=== PATIENT | female | born 1990 | race American Indian/Alaskan Native ===

== ENCOUNTER 2018-10-12 10:05 | Inpatient (IN) | payer OTHER ==
--- NOTE | 2018-10-12 10:47 | Emergency Department Report ---
ED General Adult HPI - General Chief complaint: Altered Mental Status Stated complaint: SUICIDAL ATTEMPT Time Seen by Provider: 10/12/18 10:18 Source: EMS Mode of arrival: Stretcher Limitations: Altered Mental Status - History of Present Illness Initial comments: The patient was found on the floor of her home by her with empty Tylenol or Motrin bottles. The patient states that she was trying to kill her self. The patient is sluggish but arousable and answers questions. Not very forthcoming with the history. -: Sudden Severity scale (0 -10): 0 Improves with: none Worsens with: none Treatments Prior to Arrival: none - Related Data Previous Rx's Medication Instructions Recorded Last Taken Type Sulfamethoxazole/Trimethoprim 1 each PO BID #20 tablet 04/10/15 Unknown Rx [Bactrim DS TAB] traMADol [Ultram 50 MG tab] 50 mg PO Q6HR PRN #12 tablet 04/10/15 Unknown Rx Ibuprofen [Motrin] 800 mg PO Q8HR PRN #20 tablet 04/07/18 Unknown Rx oxyCODONE /ACETAMINOPHEN [Percocet 1 tab PO Q4HR #14 tab 04/07/18 Unknown Rx 5/325] Ferrous Sulfate [Feosol 325 MG tab] 325 mg PO QDAY #30 tablet 04/11/18 Unknown Rx Allergies Allergy/AdvReac Type Severity Reaction Status Date / Time No Known Allergies Allergy Verified 04/10/15 08:12 ED Review of Systems ROS: Stated complaint: SUICIDAL ATTEMPT Other details as noted in HPI Constitutional: denies: chills, fever Eyes: denies: eye pain, eye discharge, vision change ENT: denies: ear pain, throat pain Respiratory: denies: cough, shortness of breath, wheezing Cardiovascular: denies: chest pain, palpitations Endocrine: no symptoms reported Gastrointestinal: denies: abdominal pain, nausea, diarrhea Genitourinary: denies: urgency, dysuria, discharge Musculoskeletal: denies: back pain, joint swelling, arthralgia Skin: denies: rash, lesions Neurological: denies: headache, weakness, paresthesias Psychiatric: suicidal thoughts. denies: anxiety, depression Hematological/Lymphatic: denies: easy bleeding, easy bruising ED Past Medical Hx - Past Medical History Hx Hypertension: Yes (PIH) Hx Congestive Heart Failure: No Hx Diabetes: No Hx Deep Vein Thrombosis: No Hx Renal Disease: No Hx Sickle Cell Disease: No Hx Seizures: No Hx Asthma: No Hx COPD: No - Surgical History Additional Surgical History: tonsills removed - Social History Smoking Status: Unknown if ever smoked - Medications Home Medications: Home Medications Medication Instructions Recorded Confirmed Last Taken Type Sulfamethoxazole/Trimethoprim 1 each PO BID #20 tablet 04/10/15 04/07/18 Unknown Rx [Bactrim DS TAB] traMADol [Ultram 50 MG tab] 50 mg PO Q6HR PRN #12 tablet 04/10/15 04/07/18 Unknown Rx Ibuprofen [Motrin] 800 mg PO Q8HR PRN #20 tablet 04/07/18 Unknown Rx oxyCODONE /ACETAMINOPHEN [Percocet 1 tab PO Q4HR #14 tab 04/07/18 Unknown Rx 5/325] Ferrous Sulfate [Feosol 325 MG tab] 325 mg PO QDAY #30 tablet 04/11/18 Unknown Rx ED Physical Exam - General Limitations: Altered Mental Status General appearance: obtunded - Head Head exam: Present: atraumatic, normocephalic - Eye Eye exam: Present: normal appearance, PERRL, EOMI - ENT ENT exam: Present: normal exam, mucous membranes dry - Neck Neck exam: Present: normal inspection - Respiratory Respiratory exam: Present: normal lung sounds bilaterally. Absent: respiratory distress, wheezes, rales, rhonchi ED Course Vital Signs 10/12/18 10/12/18 10/12/18 10:10 10:15 10:31 Temperature 97.4 F L Pulse Rate 90 86 87 Respiratory 18 24 24 Rate Blood Pressure 98/53 102/56 121/67 O2 Sat by Pulse 99 100 Oximetry 10/12/18 10/12/18 10/12/18 10:45 11:00 11:15 Temperature Pulse Rate 84 83 81 Respiratory 20 19 15 Rate Blood Pressure 124/77 118/76 114/75 O2 Sat by Pulse 100 100 100 Oximetry 10/12/18 10/12/18 10/12/18 11:30 11:45 12:00 Temperature Pulse Rate 81 82 86 Respiratory 23 19 23 Rate Blood Pressure 125/79 128/81 129/81 O2 Sat by Pulse 100 100 100 Oximetry 10/12/18 10/12/18 10/12/18 12:15 12:49 13:00 Temperature Pulse Rate 87 81 Respiratory 25 H 20 Rate Blood Pressure 135/89 135/89 119/69 O2 Sat by Pulse 100 95 100 Oximetry 10/12/18 10/12/18 10/12/18 13:15 13:30 13:45 Temperature Pulse Rate 94 H 81 88 Respiratory 20 22 26 H Rate Blood Pressure 130/82 117/73 129/81 O2 Sat by Pulse 100 Oximetry 10/12/18 10/12/18 10/12/18 14:00 14:15 14:30 Temperature Pulse Rate 86 85 85 Respiratory 23 22 22 Rate Blood Pressure 121/82 125/83 125/80 O2 Sat by Pulse Oximetry 10/12/18 10/12/18 10/12/18 14:45 15:00 15:15 Temperature Pulse Rate 85 85 85 Respiratory 23 22 21 Rate Blood Pressure 122/76 126/84 126/86 O2 Sat by Pulse Oximetry 10/12/18 10/12/18 15:30 15:45 Temperature Pulse Rate 84 84 Respiratory 20 21 Rate Blood Pressure 126/80 124/83 O2 Sat by Pulse Oximetry ED Medical Decision Making - Lab Data Result diagrams: 10/12/18 10:38 10/12/18 10:38 Lab Results 10/12/18 10/12/18 10/12/18 Range/Units 10:19 10:38 10:38 WBC (4.5-11.0) K/mm3 RBC (3.65-5.03) M/mm3 Hgb (10.1-14.3) gm/dl Hct (30.3-42.9) % MCV (79-97) fl MCH (28-32) pg MCHC (30-34) % RDW (13.2-15.2) % Plt Count (140-440) K/mm3 Lymph % (Auto) (13.4-35.0) % Mcdonald % (Auto) (0.0-7.3) % Eos % (Auto) (0.0-4.3) % Baso % (Auto) (0.0-1.8) % Lymph # (1.2-5.4) K/mm3 Mcdonald # (0.0-0.8) K/mm3 Eos # (0.0-0.4) K/mm3 Baso # (0.0-0.1) K/mm3 Seg Neutrophils % (40.0-70.0) % Seg Neutrophils # (1.8-7.7) K/mm3 PT (12.2-14.9) Sec. INR (0.87-1.13) APTT (24.2-36.6) Sec. Sodium (137-145) mmol/L Potassium (3.6-5.0) mmol/L Chloride (98-107) mmol/L Carbon Dioxide (22-30) mmol/L Anion Gap mmol/L BUN (7-17) mg/dL Creatinine (0.7-1.2) mg/dL Estimated GFR ml/min BUN/Creatinine Ratio % Glucose (65-100) mg/dL POC Glucose 156 H (70-105) Calcium (8.4-10.2) mg/dL Total Bilirubin (0.1-1.2) mg/dL Direct Bilirubin (0-0.2) mg/dL Indirect Bilirubin mg/dL AST (5-40) units/L ALT (7-56) units/L Alkaline Phosphatase (35-129) units/L Total Protein (6.3-8.2) g/dL Albumin (3.9-5) g/dL Albumin/Globulin Ratio % HCG, Qual (Negative) Urine Color (Yellow) Urine Turbidity (Clear) Urine pH (5.0-7.0) Ur Specific [place] (1.003-1.030) Urine Protein (Negative) mg/dL Urine Glucose (UA) (Negative) mg/dL Urine Ketones (Negative) mg/dL Urine Blood (Negative) Urine Nitrite (Negative) Urine Bilirubin (Negative) Urine Urobilinogen (<2.0) mg/dL Ur Leukocyte Esterase (Negative) Urine WBC (Auto) (0.0-6.0) /HPF Urine RBC (Auto) (0.0-6.0) /HPF Salicylates < 0.3 L (2.8-20.0) mg/dL Urine Opiates Screen Urine Methadone Screen Acetaminophen 292.8 H* (10.0-30.0) ug/mL Ur Barbiturates Screen Ur Phencyclidine Scrn Ur Amphetamines Screen U Benzodiazepines Scrn Urine Cocaine Screen U Marijuana (THC) Screen Drugs of Abuse Note Plasma/Serum Alcohol (0-0.07) % 10/12/18 10/12/18 10/12/18 Range/Units 10:38 10:38 10:38 WBC (4.5-11.0) K/mm3 RBC (3.65-5.03) M/mm3 Hgb (10.1-14.3) gm/dl Hct (30.3-42.9) % MCV (79-97) fl MCH (28-32) pg MCHC (30-34) % RDW (13.2-15.2) % Plt Count (140-440) K/mm3 Lymph % (Auto) (13.4-35.0) % Mcdonald % (Auto) (0.0-7.3) % Eos % (Auto) (0.0-4.3) % Baso % (Auto) (0.0-1.8) % Lymph # (1.2-5.4) K/mm3 Mcdonald # (0.0-0.8) K/mm3 Eos # (0.0-0.4) K/mm3 Baso # (0.0-0.1) K/mm3 Seg Neutrophils % (40.0-70.0) % Seg Neutrophils # (1.8-7.7) K/mm3 PT (12.2-14.9) Sec. INR (0.87-1.13) APTT (24.2-36.6) Sec. Sodium 138 (137-145) mmol/L Potassium 4.5 (3.6-5.0) mmol/L Chloride 103.4 (98-107) mmol/L Carbon Dioxide 20 L (22-30) mmol/L Anion Gap 19 mmol/L BUN 9 (7-17) mg/dL Creatinine 0.7 (0.7-1.2) mg/dL Estimated GFR > 60 ml/min BUN/Creatinine Ratio 13 % Glucose 136 H (65-100) mg/dL POC Glucose (70-105) Calcium 9.1 (8.4-10.2) mg/dL Total Bilirubin (0.1-1.2) mg/dL Direct Bilirubin (0-0.2) mg/dL Indirect Bilirubin mg/dL AST (5-40) units/L ALT (7-56) units/L Alkaline Phosphatase (35-129) units/L Total Protein (6.3-8.2) g/dL Albumin (3.9-5) g/dL Albumin/Globulin Ratio % HCG, Qual Negative (Negative) Urine Color (Yellow) Urine Turbidity (Clear) Urine pH (5.0-7.0) Ur Specific [place] (1.003-1.030) Urine Protein (Negative) mg/dL Urine Glucose (UA) (Negative) mg/dL Urine Ketones (Negative) mg/dL Urine Blood (Negative) Urine Nitrite (Negative) Urine Bilirubin (Negative) Urine Urobilinogen (<2.0) mg/dL Ur Leukocyte Esterase (Negative) Urine WBC (Auto) (0.0-6.0) /HPF Urine RBC (Auto) (0.0-6.0) /HPF Salicylates (2.8-20.0) mg/dL Urine Opiates Screen Urine Methadone Screen Acetaminophen (10.0-30.0) ug/mL Ur Barbiturates Screen Ur Phencyclidine Scrn Ur Amphetamines Screen U Benzodiazepines Scrn Urine Cocaine Screen U Marijuana (THC) Screen Drugs of Abuse Note Plasma/Serum Alcohol < 0.01 (0-0.07) % 10/12/18 10/12/18 10/12/18 Range/Units 10:38 10:38 10:38 WBC 4.4 L (4.5-11.0) K/mm3 RBC 3.72 (3.65-5.03) M/mm3 Hgb 10.2 (10.1-14.3) gm/dl Hct 30.4 (30.3-42.9) % MCV 82 (79-97) fl MCH 28 (28-32) pg MCHC 34 (30-34) % RDW 18.9 H (13.2-15.2) % Plt Count 813 H (140-440) K/mm3 Lymph % (Auto) 30.5 (13.4-35.0) % Mcdonald % (Auto) 8.2 H (0.0-7.3) % Eos % (Auto) 1.6 (0.0-4.3) % Baso % (Auto) 1.1 (0.0-1.8) % Lymph # 1.3 (1.2-5.4) K/mm3 Mcdonald # 0.4 (0.0-0.8) K/mm3 Eos # 0.1 (0.0-0.4) K/mm3 Baso # 0.0 (0.0-0.1) K/mm3 Seg Neutrophils % 58.6 (40.0-70.0) % Seg Neutrophils # 2.6 (1.8-7.7) K/mm3 PT 13.2 (12.2-14.9) Sec. INR 0.95 (0.87-1.13) APTT 20.0 L (24.2-36.6) Sec. Sodium (137-145) mmol/L Potassium (3.6-5.0) mmol/L Chloride (98-107) mmol/L Carbon Dioxide (22-30) mmol/L Anion Gap mmol/L BUN (7-17) mg/dL Creatinine (0.7-1.2) mg/dL Estimated GFR ml/min BUN/Creatinine Ratio % Glucose (65-100) mg/dL POC Glucose (70-105) Calcium (8.4-10.2) mg/dL Total Bilirubin 0.50 (0.1-1.2) mg/dL Direct Bilirubin < 0.2 (0-0.2) mg/dL Indirect Bilirubin 0.3 mg/dL AST 27 (5-40) units/L ALT 17 (7-56) units/L Alkaline Phosphatase 79 (35-129) units/L Total Protein 7.6 (6.3-8.2) g/dL Albumin 4.4 (3.9-5) g/dL Albumin/Globulin Ratio 1.4 % HCG, Qual (Negative) Urine Color (Yellow) Urine Turbidity (Clear) Urine pH (5.0-7.0) Ur Specific [place] (1.003-1.030) Urine Protein (Negative) mg/dL Urine Glucose (UA) (Negative) mg/dL Urine Ketones (Negative) mg/dL Urine Blood (Negative) Urine Nitrite (Negative) Urine Bilirubin (Negative) Urine Urobilinogen (<2.0) mg/dL Ur Leukocyte Esterase (Negative) Urine WBC (Auto) (0.0-6.0) /HPF Urine RBC (Auto) (0.0-6.0) /HPF Salicylates (2.8-20.0) mg/dL Urine Opiates Screen Urine Methadone Screen Acetaminophen (10.0-30.0) ug/mL Ur Barbiturates Screen Ur Phencyclidine Scrn Ur Amphetamines Screen U Benzodiazepines Scrn Urine Cocaine Screen U Marijuana (THC) Screen Drugs of Abuse Note Plasma/Serum Alcohol (0-0.07) % 10/12/18 10/12/18 10/12/18 Range/Units 11:52 14:26 14:26 WBC (4.5-11.0) K/mm3 RBC (3.65-5.03) M/mm3 Hgb (10.1-14.3) gm/dl Hct (30.3-42.9) % MCV (79-97) fl MCH (28-32) pg MCHC (30-34) % RDW (13.2-15.2) % Plt Count (140-440) K/mm3 Lymph % (Auto) (13.4-35.0) % Mcdonald % (Auto) (0.0-7.3) % Eos % (Auto) (0.0-4.3) % Baso % (Auto) (0.0-1.8) % Lymph # (1.2-5.4) K/mm3 Mcdonald # (0.0-0.8) K/mm3 Eos # (0.0-0.4) K/mm3 Baso # (0.0-0.1) K/mm3 Seg Neutrophils % (40.0-70.0) % Seg Neutrophils # (1.8-7.7) K/mm3 PT (12.2-14.9) Sec. INR (0.87-1.13) APTT (24.2-36.6) Sec. Sodium (137-145) mmol/L Potassium (3.6-5.0) mmol/L Chloride (98-107) mmol/L Carbon Dioxide (22-30) mmol/L Anion Gap mmol/L BUN (7-17) mg/dL Creatinine (0.7-1.2) mg/dL Estimated GFR ml/min BUN/Creatinine Ratio % Glucose (65-100) mg/dL POC Glucose (70-105) Calcium (8.4-10.2) mg/dL Total Bilirubin (0.1-1.2) mg/dL Direct Bilirubin (0-0.2) mg/dL Indirect Bilirubin mg/dL AST (5-40) units/L ALT (7-56) units/L Alkaline Phosphatase (35-129) units/L Total Protein (6.3-8.2) g/dL Albumin (3.9-5) g/dL Albumin/Globulin Ratio % HCG, Qual (Negative) Urine Color Straw (Yellow) Urine Turbidity Clear (Clear) Urine pH 6.0 (5.0-7.0) Ur Specific [place] 1.018 (1.003-1.030) Urine Protein <15 mg/dl (Negative) mg/dL Urine Glucose (UA) Neg (Negative) mg/dL Urine Ketones Tr (Negative) mg/dL Urine Blood Neg (Negative) Urine Nitrite Neg (Negative) Urine Bilirubin Neg (Negative) Urine Urobilinogen < 2.0 (<2.0) mg/dL Ur Leukocyte Esterase Neg (Negative) Urine WBC (Auto) 3.0 (0.0-6.0) /HPF Urine RBC (Auto) 1.0 (0.0-6.0) /HPF Salicylates (2.8-20.0) mg/dL Urine Opiates Screen Presumptive negative Urine Methadone Screen Presumptive negative Acetaminophen (10.0-30.0) ug/mL Ur Barbiturates Screen Presumptive negative Ur Phencyclidine Scrn Presumptive negative Ur Amphetamines Screen Presumptive positive U Benzodiazepines Scrn Presumptive negative Urine Cocaine Screen Presumptive negative U Marijuana (THC) Screen Presumptive negative Drugs of Abuse Note Disclamer Plasma/Serum Alcohol < 0.01 (0-0.07) % 10/12/18 Range/Units 15:05 WBC (4.5-11.0) K/mm3 RBC (3.65-5.03) M/mm3 Hgb (10.1-14.3) gm/dl Hct (30.3-42.9) % MCV (79-97) fl MCH (28-32) pg MCHC (30-34) % RDW (13.2-15.2) % Plt Count (140-440) K/mm3 Lymph % (Auto) (13.4-35.0) % Mcdonald % (Auto) (0.0-7.3) % Eos % (Auto) (0.0-4.3) % Baso % (Auto) (0.0-1.8) % Lymph # (1.2-5.4) K/mm3 Mcdonald # (0.0-0.8) K/mm3 Eos # (0.0-0.4) K/mm3 Baso # (0.0-0.1) K/mm3 Seg Neutrophils % (40.0-70.0) % Seg Neutrophils # (1.8-7.7) K/mm3 PT (12.2-14.9) Sec. INR (0.87-1.13) APTT (24.2-36.6) Sec. Sodium (137-145) mmol/L Potassium (3.6-5.0) mmol/L Chloride (98-107) mmol/L Carbon Dioxide (22-30) mmol/L Anion Gap mmol/L BUN (7-17) mg/dL Creatinine (0.7-1.2) mg/dL Estimated GFR ml/min BUN/Creatinine Ratio % Glucose (65-100) mg/dL POC Glucose (70-105) Calcium (8.4-10.2) mg/dL Total Bilirubin (0.1-1.2) mg/dL Direct Bilirubin (0-0.2) mg/dL Indirect Bilirubin mg/dL AST (5-40) units/L ALT (7-56) units/L Alkaline Phosphatase (35-129) units/L Total Protein (6.3-8.2) g/dL Albumin (3.9-5) g/dL Albumin/Globulin Ratio % HCG, Qual (Negative) Urine Color (Yellow) Urine Turbidity (Clear) Urine pH (5.0-7.0) Ur Specific [place] (1.003-1.030) Urine Protein (Negative) mg/dL Urine Glucose (UA) (Negative) mg/dL Urine Ketones (Negative) mg/dL Urine Blood (Negative) Urine Nitrite (Negative) Urine Bilirubin (Negative) Urine Urobilinogen (<2.0) mg/dL Ur Leukocyte Esterase (Negative) Urine WBC (Auto) (0.0-6.0) /HPF Urine RBC (Auto) (0.0-6.0) /HPF Salicylates (2.8-20.0) mg/dL Urine Opiates Screen Urine Methadone Screen Acetaminophen 169.7 H (10.0-30.0) ug/mL Ur Barbiturates Screen Ur Phencyclidine Scrn Ur Amphetamines Screen U Benzodiazepines Scrn Urine Cocaine Screen U Marijuana (THC) Screen Drugs of Abuse Note Plasma/Serum Alcohol (0-0.07) % - Radiology Data Radiology results: report reviewed - Medical Decision Making Acetadote via IV administered Critical Care Time: Yes Critical care time in (mins) excluding proc time.: 45 Critical care attestation.: If time is entered above; I have spent that time in minutes in the direct care of this critically ill patient, excluding procedure time. ED Disposition Clinical Impression: Acetaminophen overdose, Suicidal overdose Disposition: [id number] OP ADMIT IP TO THIS HOSP Is pt being admited?: Yes Does the pt Need Aspirin: No Condition: Fair Referrals: [facility] [Other] - 3-5 Days
[2018-10-12 10:54] LABS: Basophils % (Auto) 1.1 % (0.0-1.8); Eosinophils # (Auto) 0.1 K/mm3 (0.0-0.4); Eosinophils % (Auto) 1.6 % (0.0-4.3); Hematocrit 30.4 % (30.3-42.9); Hemoglobin 10.2 gm/dl (10.1-14.3); Lymphocytes # (Auto) 1.3 K/mm3 (1.2-5.4); Lymphocytes % (Auto) 30.5 % (13.4-35.0); Mean Corpuscular HGB Conc 34 % (30-34); Mean Corpuscular Volume 82 fl (79-97); Monocytes # (Auto) 0.4 K/mm3 (0.0-0.8); Monocytes % (Auto) 8.2 % (0.0-7.3); Platelet Count 813 K/mm3 (140-440); Red Blood Count 3.72 M/mm3 (3.65-5.03); Red Cell Distribution Width 18.9 % (13.2-15.2)
[2018-10-12 11:04] LABS: INR 0.95 (0.87-1.13)
[2018-10-12 11:16] LABS: BUN/Creatinine Ratio 13; Blood Urea Nitrogen 9 mg/dL (7-17); Calcium 9.1 mg/dL (8.4-10.2); Hemolysis Index 25
[2018-10-12 11:20] LABS: Alanine Aminotransferase 17 units/L (7-56); Albumin 4.4 g/dL (3.9-5)
[2018-10-12 11:23] LABS: Bilirubin,Direct < 0.2 mg/dL (0-0.2)
[2018-10-12] MEDS ORDERED: NACL 0.9% 1000 ML 1,000 ML IV ONE (12:12)
--- NOTE | 2018-10-12 12:32 | Cat Scan Report ---
CT HEAD WITHOUT CONTRAST: HISTORY: Altered mental status. TECHNIQUE: Sequential 2.5mm CT images. COMPARISON: none. FINDINGS: Cerebral Parenchyma: Within normal limits. Cerebellum: Within normal limits. Brainstem: Within normal limits. Ventricles: Normal. Sella: Normal. Extra-axial spaces: Normal. Basal Cisterns: Normal. Intracranial Hemorrhage: None. Midline Shift: None. Calvarium: Normal. Sinuses: Normal. Mastoid Air Cells: Normal. Visualized Orbits: Normal. IMPRESSION: Cranial CT scan within normal limits.
[2018-10-12] MEDS ORDERED: ACETADOTE IV ONE ×3 (14:43→19:45)
[2018-10-12] MEDS ORDERED: D5W IV ONE ×3 (14:43→19:45)
[2018-10-12 14:58] LABS: Bilirubin,Urine NEG (Negative); Blood,Urine NEG (Negative); Color,Urine Straw (Yellow); Protein,Urine <15 mg/dL mg/dL (Negative); Urobilinogen,Urine < 2.0 mg/dL (<2.0)
[2018-10-12 15:23] LABS: Amphetamine Screen,Urine PRESUMPTIVE POSITIVE
[2018-10-12 15:31] LABS: Benzodiazepines Screen,Urine PRESUMPTIVE NEGATIVE; Cannabinoid Screen,Urine PRESUMPTIVE NEGATIVE; Cocaine Screen,Urine PRESUMPTIVE NEGATIVE; Methadone Screen,Urine PRESUMPTIVE NEGATIVE; Opiate Screen,Urine PRESUMPTIVE NEGATIVE
[2018-10-12] MEDS ORDERED: NACL 0.9% 1000 ML 1,000 ML ONE (15:54)
--- NOTE | 2018-10-12 16:21 | History and Physical Report ---
History of Present Illness Date of examination: 10/12/18 Date of admission: 10/12/2018 Chief complaint: Tylenol overdose History of present illness: 27-year-old -[place] female with history of anemia was followed on the floor unresponsive. Patient was found unresponsive by the . Empty Tylenol and Motrin bottles were found at the side of the patient. It is unknown how many tablets the patient took. The patient says that she was trying to kill herself. Patient is sluggish but arousable and answers questions. Not forthcoming. No fever or chills. Lethargic and decreased responsiveness Past Medical History Hx Hypertension: Yes (PI) Surgical History Additional Surgical History: Tonsillectomy Social History Smoking Status: Unknown if ever smoked Family history Htn Review of Systems ROS: Stated complaint: SUICIDAL ATTEMPT Other details as noted in HPI Constitutional: denies: chills, fever Eyes: denies: eye pain, eye discharge, vision change ENT: denies: ear pain, throat pain Respiratory: denies: cough, shortness of breath, wheezing Cardiovascular: denies: chest pain, palpitations Endocrine: no symptoms reported Gastrointestinal: denies: abdominal pain, nausea, diarrhea Genitourinary: denies: urgency, dysuria, discharge Musculoskeletal: denies: back pain, joint swelling, arthralgia Skin: denies: rash, lesions Neurological: denies: headache, weakness, paresthesias Psychiatric: suicidal thoughts. denies: anxiety, depression Hematological/Lymphatic: denies: easy bleeding, easy bruising Medications and Allergies Allergies Allergy/AdvReac Type Severity Reaction Status Date / Time No Known Allergies Allergy Verified 04/10/15 08:12 Home Medications Medication Instructions Recorded Confirmed Last Taken Type Sulfamethoxazole/Trimethoprim 1 each PO BID #20 tablet 04/10/15 04/07/18 Unknown Rx [Bactrim DS TAB] traMADol [Ultram 50 MG tab] 50 mg PO Q6HR PRN #12 tablet 04/10/15 04/07/18 Unknown Rx Ibuprofen [Motrin] 800 mg PO Q8HR PRN #20 tablet 04/07/18 Unknown Rx oxyCODONE /ACETAMINOPHEN [Percocet 1 tab PO Q4HR #14 tab 04/07/18 Unknown Rx 5/325] Ferrous Sulfate [Feosol 325 MG tab] 325 mg PO QDAY #30 tablet 10/08/18 Unknown Rx Active Meds: Active Medications Acetylcysteine 3,700 mg/ (Dextrose) 518.5 mls @ 125 mls/hr IV ONCE ONE Stop: 10/12/18 20:08 Acetylcysteine 7,200 mg/ (Dextrose) 1,036 mls @ 62.5 mls/hr IV ONCE ONE Stop: 10/13/18 12:19 Exam - Constitutional Vitals: Temp Pulse Resp BP Pulse Ox 97.4 F L 85 20 144/93 100 10/12/18 10:10 10/12/18 16:15 10/12/18 16:15 10/12/18 16:15 10/12/18 13:15 General appearance: Present: mild distress, well-nourished, other (agitated. The gentleman) - EENT Eyes: Present: PERRL ENT: hearing intact, clear oral mucosa - Neck Neck: Present: supple, normal ROM - Respiratory Respiratory effort: normal Respiratory: bilateral: CTA - Cardiovascular Heart rate: 94 Rhythm: regular Heart Sounds: Present: S1 & S2. Absent: rub, click - Extremities Extremities: no ischemia, pulses symmetrical, No edema Peripheral Pulses: within normal limits - Abdominal General gastrointestinal: Present: soft, non-tender, non-distended, normal bowel sounds Female genitourinary: Present: normal - Rectal Rectal Exam: deferred - Integumentary Integumentary: Present: clear, warm, dry - Musculoskeletal Musculoskeletal: other (strength could not be tested) - Psychiatric Psychiatric: depressed, other (lethargic over over the patient is present. Fluids rigidity. Basis A CThanks) - Neurologic Neurologic: moves all extremities, other (ROASTMASTER exam could not be done properly because of the patient's decreased responsiveness) - Allied Health Allied health notes reviewed: nursing, case management Results - Labs CBC & Chem 7: 10/12/18 10:38 10/12/18 10:38 Labs: Laboratory Last Values WBC 4.4 K/mm3 (4.5-11.0) L 10/12/18 10:38 RBC 3.72 M/mm3 (3.65-5.03) 10/12/18 10:38 Hgb 10.2 gm/dl (10.1-14.3) 10/12/18 10:38 Hct 30.4 % (30.3-42.9) 10/12/18 10:38 MCV 82 fl (79-97) 10/12/18 10:38 MCH 28 pg (28-32) 10/12/18 10:38 MCHC 34 % (30-34) 10/12/18 10:38 RDW 18.9 % (13.2-15.2) H 10/12/18 10:38 Plt Count 813 K/mm3 (140-440) H 10/12/18 10:38 Lymph % (Auto) 30.5 % (13.4-35.0) 10/12/18 10:38 [place] % (Auto) 8.2 % (0.0-7.3) H 10/12/18 10:38 Eos % (Auto) 1.6 % (0.0-4.3) 10/12/18 10:38 Baso % (Auto) 1.1 % (0.0-1.8) 10/12/18 10:38 Lymph # 1.3 K/mm3 (1.2-5.4) 10/12/18 10:38 [place] # 0.4 K/mm3 (0.0-0.8) 10/12/18 10:38 Eos # 0.1 K/mm3 (0.0-0.4) 10/12/18 10:38 Baso # 0.0 K/mm3 (0.0-0.1) 10/12/18 10:38 Seg Neutrophils % 58.6 % (40.0-70.0) 10/12/18 10:38 Seg Neutrophils # 2.6 K/mm3 (1.8-7.7) 10/12/18 10:38 PT 13.2 Sec. (12.2-14.9) 10/12/18 10:38 INR 0.95 (0.87-1.13) 10/12/18 10:38 APTT 20.0 Sec. (24.2-36.6) L 10/12/18 10:38 Sodium 138 mmol/L (137-145) 10/12/18 10:38 Potassium 4.5 mmol/L (3.6-5.0) 10/12/18 10:38 Chloride 103.4 mmol/L (98-107) 10/12/18 10:38 Carbon Dioxide 20 mmol/L (22-30) L 10/12/18 10:38 Anion Gap 19 mmol/L 10/12/18 10:38 BUN 9 mg/dL (7-17) 10/12/18 10:38 Creatinine 0.7 mg/dL (0.7-1.2) 10/12/18 10:38 Estimated GFR > 60 ml/min 10/12/18 10:38 BUN/Creatinine Ratio 13 % 10/12/18 10:38 Glucose 136 mg/dL (65-100) H 10/12/18 10:38 POC Glucose 156 (70-105) H 10/12/18 10:19 Calcium 9.1 mg/dL (8.4-10.2) 10/12/18 10:38 Total Bilirubin 0.50 mg/dL (0.1-1.2) 10/12/18 10:38 Direct Bilirubin < 0.2 mg/dL (0-0.2) 10/12/18 10:38 Indirect Bilirubin 0.3 mg/dL 10/12/18 10:38 AST 27 units/L (5-40) 10/12/18 10:38 ALT 17 units/L (7-56) 10/12/18 10:38 Alkaline Phosphatase 79 units/L (35-129) 10/12/18 10:38 Total Protein 7.6 g/dL (6.3-8.2) 10/12/18 10:38 Albumin 4.4 g/dL (3.9-5) 10/12/18 10:38 Albumin/Globulin Ratio 1.4 % 10/12/18 10:38 HCG, Qual Negative (Negative) 10/12/18 10:38 Urine Color Straw (Yellow) 10/12/18 14:26 Urine Turbidity Clear (Clear) 10/12/18 14:26 Urine pH 6.0 (5.0-7.0) 10/12/18 14:26 Ur Specific [place] 1.018 (1.003-1.030) 10/12/18 14:26 Urine Protein <15 mg/dl mg/dL (Negative) 10/12/18 14:26 Urine Glucose (UA) Neg mg/dL (Negative) 10/12/18 14:26 Urine Ketones Tr mg/dL (Negative) 10/12/18 14:26 Urine Blood Neg (Negative) 10/12/18 14:26 Urine Nitrite Neg (Negative) 10/12/18 14:26 Urine Bilirubin Neg (Negative) 10/12/18 14:26 Urine Urobilinogen < 2.0 mg/dL (<2.0) 10/12/18 14:26 Ur Leukocyte Esterase Neg (Negative) 10/12/18 14:26 Urine WBC (Auto) 3.0 /HPF (0.0-6.0) 10/12/18 14:26 Urine RBC (Auto) 1.0 /HPF (0.0-6.0) 10/12/18 14:26 Salicylates < 0.3 mg/dL (2.8-20.0) L 10/12/18 10:38 Urine Opiates Screen Presumptive negative 10/12/18 14:26 Urine Methadone Screen Presumptive negative 10/12/18 14:26 Acetaminophen 169.7 ug/mL (10.0-30.0) H 10/12/18 15:05 Ur Barbiturates Screen Presumptive negative 10/12/18 14:26 Ur Phencyclidine Scrn Presumptive negative 10/12/18 14:26 Ur Amphetamines Screen Presumptive positive 10/12/18 14:26 U Benzodiazepines Scrn Presumptive negative 10/12/18 14:26 Urine Cocaine Screen Presumptive negative 10/12/18 14:26 U Marijuana (THC) Screen Presumptive negative 10/12/18 14:26 Drugs of Abuse Note Disclamer 10/12/18 14:26 Plasma/Serum Alcohol < 0.01 % (0-0.07) 10/12/18 11:52 Short CBC 10/12/18 Range/Units 10:38 WBC 4.4 L (4.5-11.0) K/mm3 Hgb 10.2 (10.1-14.3) gm/dl Hct 30.4 (30.3-42.9) % Plt Count 813 H (140-440) K/mm3 BMP 10/12/18 10:38 Sodium 138 Potassium 4.5 Chloride 103.4 Carbon Dioxide 20 L BUN 9 Creatinine 0.7 Glucose 136 H Calcium 9.1 Liver Function 10/12/18 Range/Units 10:38 Total Bilirubin 0.50 (0.1-1.2) mg/dL Direct Bilirubin < 0.2 (0-0.2) mg/dL AST 27 (5-40) units/L ALT 17 (7-56) units/L Alkaline Phosphatase 79 (35-129) units/L Albumin 4.4 (3.9-5) g/dL Urine 10/12/18 Range/Units 14:26 Urine Color Straw (Yellow) Urine pH 6.0 (5.0-7.0) Ur Specific [place] 1.018 (1.003-1.030) Urine Protein <15 mg/dl (Negative) mg/dL Urine Glucose (UA) Neg (Negative) mg/dL - Imaging and Cardiology EKG: report reviewed (normal sinus rhythm heart rate 94 per minute no acute ST-T wave changes) CT Scan - head: report reviewed (no acute findings) Assessment and Plan Assessment and plan: Critical care time 32 minutes Advance Directives: Yes (full code) VTE prophylaxis?: Chemical Plan of care discussed with patient/family: Yes - Patient Problems (1) Acetaminophen overdose Current Visit: Yes Status: Acute Qualifiers: Encounter type: initial encounter Plan to address problem: Poison control contacted Acetylcysteine protocol initiated IV acetylcysteine to be given as per protocol Also IV fluids Psychiatric Lpn consult requested Acetaminophen level 292 We will monitor the acetaminophen level (2) Hyperglycemia Current Visit: Yes Status: Acute Plan to address problem: We will check A1c O We will give coverage if necessary Uncertain at this point whether patient has type 2 diabetes or juvenile diabetes (3) Deep vein thrombosis (DVT) prophylaxis not tolerated by patient Current Visit: Yes Status: Acute Plan to address problem: Lovenox subcutaneous daily and GI prophylaxis
[2018-10-12] MEDS ORDERED: ZOFRAN ONE (17:49)
[2018-10-12] MEDS ORDERED: TYLENOL PO PRN (20:21)
[2018-10-12] MEDS ORDERED: ZOFRAN IV PRN (20:21)
[2018-10-12] MEDS ORDERED: SODIUM CHLORIDE FLUSH SYRINGE 10 ML IV PRN (20:21)
[2018-10-12] MEDS ORDERED: NACL 0.9% 1000 ML 1,000 ML IV SCH (21:00)
[2018-10-12] MEDS: LOVENOX SUB-Q SCH (22:00)
[2018-10-12] MEDS: PEPCID IV SCH (22:00)
[2018-10-12] MEDS: SODIUM CHLORIDE FLUSH SYRINGE 10 ML IV SCH (22:00)
[2018-10-13] MEDS ORDERED: PEPCID IV ONE ×2 (01:36→11:56)
[2018-10-13] MEDS ORDERED: LOVENOX SUB-Q ONE ×2 (01:36→11:56)
[2018-10-13 03:28] LABS: Basophils # (Auto) 0.1 K/mm3 (0.0-0.1); Basophils % (Auto) 1.1 % (0.0-1.8); Eosinophils % (Auto) 0.4 % (0.0-4.3); Hematocrit 30.3 % (30.3-42.9); Hemoglobin 9.9 gm/dl (10.1-14.3); Lymphocytes # (Auto) 2.3 K/mm3 (1.2-5.4); Lymphocytes % (Auto) 40.3 % (13.4-35.0); Mean Corpuscular HGB Conc 33 % (30-34); Mean Corpuscular Volume 81 fl (79-97); Monocytes # (Auto) 0.5 K/mm3 (0.0-0.8); Monocytes % (Auto) 8.4 % (0.0-7.3); Platelet Count 729 K/mm3 (140-440); Red Blood Count 3.74 M/mm3 (3.65-5.03); Red Cell Distribution Width 18.8 % (13.2-15.2)
[2018-10-13 03:54] LABS: Alanine Aminotransferase 16 units/L (7-56); BUN/Creatinine Ratio 9; Blood Urea Nitrogen 6 mg/dL (7-17); Calcium 9.2 mg/dL (8.4-10.2); Hemolysis Index 4
--- NOTE | 2018-10-13 07:58 | Progress Note ---
Assessment and Plan Assessment and plan: 26-year-old -[place] female with medical history significant for depression. HAS been off her antidepressants for a while, and was depressed tried to commit suicide. She says she took 500 mg of 40 pills of Tylenol and after that she didn't know what happened and she wake up in the hospital Acetaminophen overdose - Poison control was contacted and patient is being managed with an before meals according to the protocol - Patient's liver function is normal, will check INR - We'll continue to follow - No respiratory compromise - Patient is alert and oriented Major depression, suicidal attempt - Psych consult placed DVT prophylaxis on Lovenox Disposition - Patient can be downgraded to telemetry floor with close monitoring History Interval history: Patient was seen and evaluated this morning, she was alert and oriented, patient stated that she was depressed and try to kill herself. She denied suicidal ideation now. Hospitalist Physical - Physical exam Narrative exam: Not in cardiopulmonary distress. The patient appeared well nourished and normally developed. Vital signs as documented. Head exam is unremarkable. No scleral icterus . Neck is without jugular venous distension, thyromegaly, or carotid bruits. Lungs are clear to auscultation. Cardiac exam reveals regular rate and Rhythm. Abdominal exam reveals normal bowel sounds. Extremities are nonedematous and both femoral and pedal pulses are normal. BOX TOE MAKER: Alert and oriented 3. No focal weakness. - Constitutional Vitals: Temp Pulse Resp BP Pulse Ox 97.4 F L 86 15 136/87 97 10/12/18 10:10 10/13/18 05:31 10/13/18 05:31 10/13/18 05:31 10/13/18 05:31 General appearance: Present: mild distress, well-nourished, other (agitated. The gentleman) Results - Labs CBC & Chem 7: 10/13/18 03:11 10/13/18 03:11 Labs: Laboratory Last Values WBC 5.8 K/mm3 (4.5-11.0) 10/13/18 03:11 RBC 3.74 M/mm3 (3.65-5.03) 10/13/18 03:11 Hgb 9.9 gm/dl (10.1-14.3) L 10/13/18 03:11 Hct 30.3 % (30.3-42.9) 10/13/18 03:11 MCV 81 fl (79-97) 10/13/18 03:11 MCH 27 pg (28-32) L 10/13/18 03:11 MCHC 33 % (30-34) 10/13/18 03:11 RDW 18.8 % (13.2-15.2) H 10/13/18 03:11 Plt Count 729 K/mm3 (140-440) H 10/13/18 03:11 Lymph % (Auto) 40.3 % (13.4-35.0) H 10/13/18 03:11 [place] % (Auto) 8.4 % (0.0-7.3) H 10/13/18 03:11 Eos % (Auto) 0.4 % (0.0-4.3) 10/13/18 03:11 Baso % (Auto) 1.1 % (0.0-1.8) 10/13/18 03:11 Lymph # 2.3 K/mm3 (1.2-5.4) 10/13/18 03:11 [place] # 0.5 K/mm3 (0.0-0.8) 10/13/18 03:11 Eos # 0.0 K/mm3 (0.0-0.4) 10/13/18 03:11 Baso # 0.1 K/mm3 (0.0-0.1) 10/13/18 03:11 Seg Neutrophils % 49.8 % (40.0-70.0) 10/13/18 03:11 Seg Neutrophils # 2.9 K/mm3 (1.8-7.7) 10/13/18 03:11 PT 13.2 Sec. (12.2-14.9) 10/12/18 10:38 INR 0.95 (0.87-1.13) 10/12/18 10:38 APTT 20.0 Sec. (24.2-36.6) L 10/12/18 10:38 Sodium 135 mmol/L (137-145) L 10/13/18 03:11 Potassium 3.4 mmol/L (3.6-5.0) L D 10/13/18 03:11 Chloride 102.4 mmol/L (98-107) 10/13/18 03:11 Carbon Dioxide 16 mmol/L (22-30) L 10/13/18 03:11 Anion Gap 20 mmol/L 10/13/18 03:11 BUN 6 mg/dL (7-17) L 10/13/18 03:11 Creatinine 0.7 mg/dL (0.7-1.2) 10/13/18 03:11 Estimated GFR > 60 ml/min 10/13/18 03:11 BUN/Creatinine Ratio 9 % 10/13/18 03:11 Glucose 81 mg/dL (65-100) 10/13/18 03:11 POC Glucose 156 (70-105) H 10/12/18 10:19 Hemoglobin A1c 5.4 % (4-6) 10/12/18 20:36 Calcium 9.2 mg/dL (8.4-10.2) 10/13/18 03:11 Total Bilirubin 0.40 mg/dL (0.1-1.2) 10/13/18 03:11 Direct Bilirubin < 0.2 mg/dL (0-0.2) 10/12/18 10:38 Indirect Bilirubin 0.3 mg/dL 10/12/18 10:38 AST 20 units/L (5-40) 10/13/18 03:11 ALT 16 units/L (7-56) 10/13/18 03:11 Alkaline Phosphatase 71 units/L (35-129) 10/13/18 03:11 Total Protein 6.9 g/dL (6.3-8.2) 10/13/18 03:11 Albumin 4.0 g/dL (3.9-5) 10/13/18 03:11 Albumin/Globulin Ratio 1.4 % 10/13/18 03:11 HCG, Qual Negative (Negative) 10/12/18 10:38 Urine Color Straw (Yellow) 10/12/18 14:26 Urine Turbidity Clear (Clear) 10/12/18 14:26 Urine pH 6.0 (5.0-7.0) 10/12/18 14:26 Ur Specific [place] 1.018 (1.003-1.030) 10/12/18 14:26 Urine Protein <15 mg/dl mg/dL (Negative) 10/12/18 14:26 Urine Glucose (UA) Neg mg/dL (Negative) 10/12/18 14:26 Urine Ketones Tr mg/dL (Negative) 10/12/18 14:26 Urine Blood Neg (Negative) 10/12/18 14:26 Urine Nitrite Neg (Negative) 10/12/18 14:26 Urine Bilirubin Neg (Negative) 10/12/18 14:26 Urine Urobilinogen < 2.0 mg/dL (<2.0) 10/12/18 14:26 Ur Leukocyte Esterase Neg (Negative) 10/12/18 14:26 Urine WBC (Auto) 3.0 /HPF (0.0-6.0) 10/12/18 14:26 Urine RBC (Auto) 1.0 /HPF (0.0-6.0) 10/12/18 14:26 Salicylates < 0.3 mg/dL (2.8-20.0) L 10/12/18 10:38 Urine Opiates Screen Presumptive negative 10/12/18 14:26 Urine Methadone Screen Presumptive negative 10/12/18 14:26 Acetaminophen 6.3 ug/mL (10.0-30.0) L 10/13/18 03:11 Ur Barbiturates Screen Presumptive negative 10/12/18 14:26 Ur Phencyclidine Scrn Presumptive negative 10/12/18 14:26 Ur Amphetamines Screen Presumptive positive 10/12/18 14:26 U Benzodiazepines Scrn Presumptive negative 10/12/18 14:26 Urine Cocaine Screen Presumptive negative 10/12/18 14:26 U Marijuana (THC) Screen Presumptive negative 10/12/18 14:26 Drugs of Abuse Note Disclamer 10/12/18 14:26 Plasma/Serum Alcohol < 0.01 % (0-0.07) 10/12/18 11:52 Active Medications - Current Medications Current Medications: Generic Name Dose Route Start Last Admin Trade Name Freq PRN Reason Stop Dose Admin Enoxaparin Sodium 40 mg 10/12/18 21:00 10/12/18 22:00 Lovenox SUB-Q 40 mg QDAY ALBERTO Administration Famotidine 20 mg 10/12/18 22:00 10/12/18 22:00 Pepcid IV 20 mg BID ALBERTO Administration Acetylcysteine 7,200 mg/ 1,036 mls @ 62.5 mls/hr 10/12/18 19:45 10/12/18 21:56 Dextrose IV 10/13/18 12:19 62.5 mls/hr ONCE ONE Administration Sodium Chloride 1,000 mls @ 125 mls/hr 10/12/18 21:00 Nacl 0.9% 1000 Ml IV DIRECT ALBERTO Ondansetron HCl 4 mg 10/12/18 20:21 Zofran IV Q8H PRN Nausea And Vomiting Sodium Chloride 10 ml 10/12/18 22:00 10/12/18 22:00 Sodium Chloride Flush Syringe 10 Ml IV 10 ml BID ALBERTO Administration Sodium Chloride 10 ml 10/12/18 20:21 Sodium Chloride Flush Syringe 10 Ml IV PRN PRN LINE FLUSH
[2018-10-13 08:38] LABS: INR 1.08 (0.87-1.13)
[2018-10-13] MEDS: PEPCID IV SCH ×2 (11:00→22:15)
[2018-10-13] MEDS: LOVENOX SUB-Q SCH (11:00)
[2018-10-13] MEDS: SODIUM CHLORIDE FLUSH SYRINGE 10 ML IV SCH ×2 (12:01→22:15)
[2018-10-13 17:19] LABS: INR 1.09 (0.87-1.13)
[2018-10-13 17:23] LABS: Alanine Aminotransferase 16 units/L (7-56); Albumin 4.4 g/dL (3.9-5); BUN/Creatinine Ratio 7; Blood Urea Nitrogen 5 mg/dL (7-17); Calcium 9.8 mg/dL (8.4-10.2); Hemolysis Index 0
[2018-10-14 07:15] LABS: Alanine Aminotransferase 14 units/L (7-56); Albumin 4.2 g/dL (3.9-5); BUN/Creatinine Ratio 7; Blood Urea Nitrogen 5 mg/dL (7-17); Calcium 9.1 mg/dL (8.4-10.2); Hemolysis Index 8
[2018-10-14] MEDS: SODIUM CHLORIDE FLUSH SYRINGE 10 ML IV SCH ×2 (09:40→21:23)
[2018-10-14] MEDS: PEPCID IV SCH ×2 (09:40→21:23)
[2018-10-14] MEDS: LOVENOX SUB-Q SCH (09:40)
--- NOTE | 2018-10-14 14:27 | Progress Note ---
Assessment and Plan Assessment and plan: 26-year-old -Iraqi female with medical history significant for depression. HAS been off her antidepressants for a while, and was depressed tried to commit suicide. She says she took 500 mg of 40 pills of Tylenol and after that she didn't know what happened and she wake up in the hospital Acetaminophen overdose - Poison control was contacted and patient is being managed with an before meals according to the protocol - Patient's liver function is normal, INR is normal, acetaminophen level is normal - We'll continue to follow - No respiratory compromise - Patient is alert and oriented Major depression, suicidal attempt - Psych consult placed DVT prophylaxis on Lovenox Disposition - patient is medically stable. Discharge is per psych. History Interval history: Patient was seen and evaluated this morning, she was alert and oriented. She denied suicidal ideation now. Hospitalist Physical - Physical exam Narrative exam: Not in cardiopulmonary distress. The patient appeared well nourished and normally developed. Vital signs as documented. Head exam is unremarkable. No scleral icterus . Neck is without jugular venous distension, thyromegaly, or carotid bruits. Lungs are clear to auscultation. Cardiac exam reveals regular rate and Rhythm. Abdominal exam reveals normal bowel sounds. Extremities are nonedematous and both femoral and pedal pulses are normal. CONTRACT ATTORNEY: Alert and oriented 3. No focal weakness. - Constitutional Vitals: Temp Pulse Resp BP Pulse Ox 98.3 F 92 H 20 128/85 99 10/14/18 09:08 10/14/18 07:46 10/14/18 07:46 10/14/18 07:46 10/14/18 07:46 General appearance: Present: mild distress, well-nourished, other (agitated. The gentleman) Results - Labs CBC & Chem 7: 10/13/18 03:11 10/14/18 06:20 Labs: Laboratory Last Values WBC 5.8 K/mm3 (4.5-11.0) 10/13/18 03:11 RBC 3.74 M/mm3 (3.65-5.03) 10/13/18 03:11 Hgb 9.9 gm/dl (10.1-14.3) L 10/13/18 03:11 Hct 30.3 % (30.3-42.9) 10/13/18 03:11 MCV 81 fl (79-97) 10/13/18 03:11 MCH 27 pg (28-32) L 10/13/18 03:11 MCHC 33 % (30-34) 10/13/18 03:11 RDW 18.8 % (13.2-15.2) H 10/13/18 03:11 Plt Count 729 K/mm3 (140-440) H 10/13/18 03:11 Lymph % (Auto) 40.3 % (13.4-35.0) H 10/13/18 03:11 [place] % (Auto) 8.4 % (0.0-7.3) H 10/13/18 03:11 Eos % (Auto) 0.4 % (0.0-4.3) 10/13/18 03:11 Baso % (Auto) 1.1 % (0.0-1.8) 10/13/18 03:11 Lymph # 2.3 K/mm3 (1.2-5.4) 10/13/18 03:11 [place] # 0.5 K/mm3 (0.0-0.8) 10/13/18 03:11 Eos # 0.0 K/mm3 (0.0-0.4) 10/13/18 03:11 Baso # 0.1 K/mm3 (0.0-0.1) 10/13/18 03:11 Seg Neutrophils % 49.8 % (40.0-70.0) 10/13/18 03:11 Seg Neutrophils # 2.9 K/mm3 (1.8-7.7) 10/13/18 03:11 PT 13.8 Sec. (12.2-14.9) 10/14/18 06:20 INR 1.00 (0.87-1.13) 10/14/18 06:20 APTT 20.0 Sec. (24.2-36.6) L 10/12/18 10:38 Sodium 137 mmol/L (137-145) 10/14/18 06:20 Potassium 3.6 mmol/L (3.6-5.0) 10/14/18 06:20 Chloride 103.6 mmol/L (98-107) 10/14/18 06:20 Carbon Dioxide 21 mmol/L (22-30) L 10/14/18 06:20 Anion Gap 16 mmol/L 10/14/18 06:20 BUN 5 mg/dL (7-17) L 10/14/18 06:20 Creatinine 0.7 mg/dL (0.7-1.2) 10/14/18 06:20 Estimated GFR > 60 ml/min 10/14/18 06:20 BUN/Creatinine Ratio 7 % 10/14/18 06:20 Glucose 79 mg/dL (65-100) 10/14/18 06:20 POC Glucose 156 (70-105) H 10/12/18 10:19 Hemoglobin A1c 5.4 % (4-6) 10/12/18 20:36 Calcium 9.1 mg/dL (8.4-10.2) 10/14/18 06:20 Total Bilirubin 0.30 mg/dL (0.1-1.2) 10/14/18 06:20 Direct Bilirubin < 0.2 mg/dL (0-0.2) 10/12/18 10:38 Indirect Bilirubin 0.3 mg/dL 10/12/18 10:38 AST 18 units/L (5-40) 10/14/18 06:20 ALT 14 units/L (7-56) 10/14/18 06:20 Alkaline Phosphatase 74 units/L (35-129) 10/14/18 06:20 Total Protein 7.3 g/dL (6.3-8.2) 10/14/18 06:20 Albumin 4.2 g/dL (3.9-5) 10/14/18 06:20 Albumin/Globulin Ratio 1.4 % 10/14/18 06:20 HCG, Qual Negative (Negative) 10/12/18 10:38 Urine Color Straw (Yellow) 10/12/18 14:26 Urine Turbidity Clear (Clear) 10/12/18 14:26 Urine pH 6.0 (5.0-7.0) 10/12/18 14:26 Ur Specific [place] 1.018 (1.003-1.030) 10/12/18 14:26 Urine Protein <15 mg/dl mg/dL (Negative) 10/12/18 14:26 Urine Glucose (UA) Neg mg/dL (Negative) 10/12/18 14:26 Urine Ketones Tr mg/dL (Negative) 10/12/18 14:26 Urine Blood Neg (Negative) 10/12/18 14:26 Urine Nitrite Neg (Negative) 10/12/18 14:26 Urine Bilirubin Neg (Negative) 10/12/18 14:26 Urine Urobilinogen < 2.0 mg/dL (<2.0) 10/12/18 14:26 Ur Leukocyte Esterase Neg (Negative) 10/12/18 14:26 Urine WBC (Auto) 3.0 /HPF (0.0-6.0) 10/12/18 14:26 Urine RBC (Auto) 1.0 /HPF (0.0-6.0) 10/12/18 14:26 Salicylates < 0.3 mg/dL (2.8-20.0) L 10/12/18 10:38 Urine Opiates Screen Presumptive negative 10/12/18 14:26 Urine Methadone Screen Presumptive negative 10/12/18 14:26 Acetaminophen < 5.0 ug/mL (10.0-30.0) L 10/14/18 09:50 Ur Barbiturates Screen Presumptive negative 10/12/18 14:26 Ur Phencyclidine Scrn Presumptive negative 10/12/18 14:26 Ur Amphetamines Screen Presumptive positive 10/12/18 14:26 U Benzodiazepines Scrn Presumptive negative 10/12/18 14:26 Urine Cocaine Screen Presumptive negative 10/12/18 14:26 U Marijuana (THC) Screen Presumptive negative 10/12/18 14:26 Drugs of Abuse Note Disclamer 10/12/18 14:26 Plasma/Serum Alcohol < 0.01 % (0-0.07) 10/12/18 11:52 Active Medications - Current Medications Current Medications: Generic Name Dose Route Start Last Admin Trade Name Freq PRN Reason Stop Dose Admin Enoxaparin Sodium 40 mg 10/12/18 21:00 10/14/18 09:40 Lovenox SUB-Q 40 mg QDAY ALBERTO Administration Famotidine 20 mg 10/12/18 22:00 10/14/18 09:40 Pepcid IV 20 mg BID ALBERTO Administration Sodium Chloride 1,000 mls @ 125 mls/hr 10/12/18 21:00 Nacl 0.9% 1000 Ml IV DIRECT ALBERTO Ondansetron HCl 4 mg 10/12/18 20:21 Zofran IV Q8H PRN Nausea And Vomiting Sodium Chloride 10 ml 10/12/18 22:00 10/14/18 09:40 Sodium Chloride Flush Syringe 10 Ml IV 10 ml BID ALBERTO Administration Sodium Chloride 10 ml 10/12/18 20:21 Sodium Chloride Flush Syringe 10 Ml IV PRN PRN LINE FLUSH
[2018-10-15] MEDS: PEPCID IV SCH ×2 (09:48→22:44)
[2018-10-15] MEDS: LOVENOX SUB-Q SCH (09:48)
[2018-10-15] MEDS: SODIUM CHLORIDE FLUSH SYRINGE 10 ML IV SCH ×2 (09:48→22:44)
--- NOTE | 2018-10-15 13:15 | Progress Note ---
Assessment and Plan Assessment and plan: 26-year-old -[place]er female with medical history significant for depression. HAS been off her antidepressants for a while, and was depressed tried to commit suicide. She says she took 500 mg of 40 pills of Tylenol and after that she didn't know what happened and she wake up in the hospital Acetaminophen overdose - Poison control was contacted and patient is being managed with an before meals according to the protocol - Patient's liver function is normal, INR is normal, acetaminophen level is normal - We'll continue to follow - No respiratory compromise - Patient is alert and oriented Major depression, suicidal attempt - Psych consult placed DVT prophylaxis on Lovenox Disposition - patient is medically stable. Discharge is per psych. History Interval history: Patient was seen and evaluated this morning, she was alert and oriented. She denied suicidal ideation. Hospitalist Physical - Physical exam Narrative exam: Not in cardiopulmonary distress. The patient appeared well nourished and normally developed. Vital signs as documented. Head exam is unremarkable. No scleral icterus . Neck is without jugular venous distension, thyromegaly, or carotid bruits. Lungs are clear to auscultation. Cardiac exam reveals regular rate and Rhythm. Abdominal exam reveals normal bowel sounds. Extremities are nonedematous and both femoral and pedal pulses are normal. DENTURES LAB TECHNICIAN: Alert and oriented 3. No focal weakness. - Constitutional Vitals: Temp Pulse Resp BP Pulse Ox 98.4 F 82 18 122/75 100 10/15/18 07:37 10/15/18 10:00 10/15/18 07:37 10/15/18 07:37 10/15/18 07:37 General appearance: Present: mild distress, well-nourished, other (agitated. The gentleman) Results - Labs CBC & Chem 7: 10/13/18 03:11 10/14/18 06:20 Labs: Laboratory Last Values WBC 5.8 K/mm3 (4.5-11.0) 10/13/18 03:11 RBC 3.74 M/mm3 (3.65-5.03) 10/13/18 03:11 Hgb 9.9 gm/dl (10.1-14.3) L 10/13/18 03:11 Hct 30.3 % (30.3-42.9) 10/13/18 03:11 MCV 81 fl (79-97) 10/13/18 03:11 MCH 27 pg (28-32) L 10/13/18 03:11 MCHC 33 % (30-34) 10/13/18 03:11 RDW 18.8 % (13.2-15.2) H 10/13/18 03:11 Plt Count 729 K/mm3 (140-440) H 10/13/18 03:11 Lymph % (Auto) 40.3 % (13.4-35.0) H 10/13/18 03:11 [place] % (Auto) 8.4 % (0.0-7.3) H 10/13/18 03:11 Eos % (Auto) 0.4 % (0.0-4.3) 10/13/18 03:11 Baso % (Auto) 1.1 % (0.0-1.8) 10/13/18 03:11 Lymph # 2.3 K/mm3 (1.2-5.4) 10/13/18 03:11 [place] # 0.5 K/mm3 (0.0-0.8) 10/13/18 03:11 Eos # 0.0 K/mm3 (0.0-0.4) 10/13/18 03:11 Baso # 0.1 K/mm3 (0.0-0.1) 10/13/18 03:11 Seg Neutrophils % 49.8 % (40.0-70.0) 10/13/18 03:11 Seg Neutrophils # 2.9 K/mm3 (1.8-7.7) 10/13/18 03:11 PT 13.8 Sec. (12.2-14.9) 10/14/18 06:20 INR 1.00 (0.87-1.13) 10/14/18 06:20 APTT 20.0 Sec. (24.2-36.6) L 10/12/18 10:38 Sodium 137 mmol/L (137-145) 10/14/18 06:20 Potassium 3.6 mmol/L (3.6-5.0) 10/14/18 06:20 Chloride 103.6 mmol/L (98-107) 10/14/18 06:20 Carbon Dioxide 21 mmol/L (22-30) L 10/14/18 06:20 Anion Gap 16 mmol/L 10/14/18 06:20 BUN 5 mg/dL (7-17) L 10/14/18 06:20 Creatinine 0.7 mg/dL (0.7-1.2) 10/14/18 06:20 Estimated GFR > 60 ml/min 10/14/18 06:20 BUN/Creatinine Ratio 7 % 10/14/18 06:20 Glucose 79 mg/dL (65-100) 10/14/18 06:20 POC Glucose 156 (70-105) H 10/12/18 10:19 Hemoglobin A1c 5.4 % (4-6) 10/12/18 20:36 Calcium 9.1 mg/dL (8.4-10.2) 10/14/18 06:20 Total Bilirubin 0.30 mg/dL (0.1-1.2) 10/14/18 06:20 Direct Bilirubin < 0.2 mg/dL (0-0.2) 10/12/18 10:38 Indirect Bilirubin 0.3 mg/dL 10/12/18 10:38 AST 18 units/L (5-40) 10/14/18 06:20 ALT 14 units/L (7-56) 10/14/18 06:20 Alkaline Phosphatase 74 units/L (35-129) 10/14/18 06:20 Total Protein 7.3 g/dL (6.3-8.2) 10/14/18 06:20 Albumin 4.2 g/dL (3.9-5) 10/14/18 06:20 Albumin/Globulin Ratio 1.4 % 10/14/18 06:20 HCG, Qual Negative (Negative) 10/12/18 10:38 Urine Color Straw (Yellow) 10/12/18 14:26 Urine Turbidity Clear (Clear) 10/12/18 14:26 Urine pH 6.0 (5.0-7.0) 10/12/18 14:26 Ur Specific [place] 1.018 (1.003-1.030) 10/12/18 14:26 Urine Protein <15 mg/dl mg/dL (Negative) 10/12/18 14:26 Urine Glucose (UA) Neg mg/dL (Negative) 10/12/18 14:26 Urine Ketones Tr mg/dL (Negative) 10/12/18 14:26 Urine Blood Neg (Negative) 10/12/18 14:26 Urine Nitrite Neg (Negative) 10/12/18 14:26 Urine Bilirubin Neg (Negative) 10/12/18 14:26 Urine Urobilinogen < 2.0 mg/dL (<2.0) 10/12/18 14:26 Ur Leukocyte Esterase Neg (Negative) 10/12/18 14:26 Urine WBC (Auto) 3.0 /HPF (0.0-6.0) 10/12/18 14:26 Urine RBC (Auto) 1.0 /HPF (0.0-6.0) 10/12/18 14:26 Salicylates < 0.3 mg/dL (2.8-20.0) L 10/12/18 10:38 Urine Opiates Screen Presumptive negative 10/12/18 14:26 Urine Methadone Screen Presumptive negative 10/12/18 14:26 Acetaminophen < 5.0 ug/mL (10.0-30.0) L 10/14/18 09:50 Ur Barbiturates Screen Presumptive negative 10/12/18 14:26 Ur Phencyclidine Scrn Presumptive negative 10/12/18 14:26 Ur Amphetamines Screen Presumptive positive 10/12/18 14:26 U Benzodiazepines Scrn Presumptive negative 10/12/18 14:26 Urine Cocaine Screen Presumptive negative 10/12/18 14:26 U Marijuana (THC) Screen Presumptive negative 10/12/18 14:26 Drugs of Abuse Note Disclamer 10/12/18 14:26 Plasma/Serum Alcohol < 0.01 % (0-0.07) 10/12/18 11:52 Active Medications - Current Medications Current Medications: Generic Name Dose Route Start Last Admin Trade Name Freq PRN Reason Stop Dose Admin Enoxaparin Sodium 40 mg 10/12/18 21:00 10/15/18 09:48 Lovenox SUB-Q 40 mg QDAY ALBERTO Administration Famotidine 20 mg 10/12/18 22:00 10/15/18 09:48 Pepcid IV 20 mg BID ALBERTO Administration Sodium Chloride 1,000 mls @ 125 mls/hr 10/12/18 21:00 Nacl 0.9% 1000 Ml IV DIRECT ALBERTO Ondansetron HCl 4 mg 10/12/18 20:21 Zofran IV Q8H PRN Nausea And Vomiting Sodium Chloride 10 ml 10/12/18 22:00 10/15/18 09:48 Sodium Chloride Flush Syringe 10 Ml IV 10 ml BID ALBERTO Administration Sodium Chloride 10 ml 10/12/18 20:21 Sodium Chloride Flush Syringe 10 Ml IV PRN PRN LINE FLUSH
--- NOTE | 2018-10-15 16:55 | Consultation ---
History of Present Illness - Reason for Consult Consult date: 10/15/18 Reason for consult: psychiatric evaluation following overdose - Chief Complaint Chief complaint: "I have a new lease on life." - History of Present Psychiatric Illness 26-year-old -[place]ovenian female with medical history significant for depression. She states she has been off her antidepressants for a while, and was depressed tried to commit suicide. She says she took 500 mg of 40 pills of Tylenol and after that she didn't know what happened and she woke up in the hospital. She has been medically cleared. She expressed remorse for her action and says she feels excited to be alive. When she was informed of the 3 process and need for inpatient hospitalization, she became tearful and her demeanor changed. She said repeatedly she did not understand why she needed to go to an inpatient facility. She states "my baby is my life and I can't lose him." Her significant other was holding the baby and did not say anything during the interview. She looked at him and said, "look what you did." He did not respond. Medications and Allergies Allergies Allergy/AdvReac Type Severity Reaction Status Date / Time No Known Allergies Allergy Verified 04/10/15 08:12 Home Medications Medication Instructions Recorded Confirmed Last Taken Type Sulfamethoxazole/Trimethoprim 1 each PO BID #20 tablet 04/10/15 10/13/18 Unknown Rx [Bactrim DS TAB] traMADol [Ultram 50 MG tab] 50 mg PO Q6HR PRN #12 tablet 04/10/15 10/13/18 Unknown Rx Ibuprofen [Motrin] 800 mg PO Q8HR PRN #20 tablet 04/07/18 10/13/18 Unknown Rx oxyCODONE /ACETAMINOPHEN [Percocet 1 tab PO Q4HR #14 tab 04/07/18 10/13/18 Unknown Rx 5/325] Ferrous Sulfate [Feosol 325 MG tab] 325 mg PO QDAY #30 tablet 04/11/18 10/13/18 Unknown Rx Active Meds: Active Medications Enoxaparin Sodium (Lovenox) 40 mg SUB-Q QDAY ON LICENSE OF [facility] Last Admin: 10/15/18 09:48 Dose: 40 mg Documented by: Famotidine (Pepcid) 20 mg IV BID ON LICENSE OF [facility] Last Admin: 10/15/18 09:48 Dose: 20 mg Documented by: Sodium Chloride (Nacl 0.9% 1000 Ml) 1,000 mls @ 125 mls/hr IV DIRECT ALBERTO Ondansetron HCl (Zofran) 4 mg IV Q8H PRN PRN Reason: Nausea And Vomiting Sodium Chloride (Sodium Chloride Flush Syringe 10 Ml) 10 ml IV BID ALBERTO Last Admin: 10/15/18 09:48 Dose: 10 ml Documented by: Sodium Chloride (Sodium Chloride Flush Syringe 10 Ml) 10 ml IV PRN PRN PRN Reason: LINE FLUSH Past psychiatric history - Past Medical History Past Medical History: No medical history - past Psychiatric treatment and history Psych: Depression - Social History Social history: lives with family Mental Status Exam - Vital signs Last Vital Signs Temp 98.7 F 10/15/18 16:04 Pulse 98 H 10/15/18 16:04 Resp 18 10/15/18 16:04 BP 129/65 10/15/18 16:04 Pulse Ox 96 10/15/18 16:04 - Exam Narrative exam: After finding out about 1013 process, she stated, "I think I'm having a panic attack." Orientation: time, place, person Affect: depressed, anxious Mood: euphoric (initially) Thought content: other (denies suicidal or homicidal ideation. suicide attempt via overdose) Thought Process: Intact Perceptions: none Speech: normal rate and pattern Concentration: focused Motor activity: normal Level of consciousness: alert Memory: Intact Sleep Symptoms: None Interaction: cooperative Results Result Diagrams: 10/13/18 03:11 10/14/18 06:20 All other labs normal. Assessment and Plan Assessment and plan: Impression: suicide attempt via overdose on forty tabs of 500mg tylenol requiring medical intervention. She is now medically cleared Major depressive disorder r/o bipolar disorder UDS neg. ETOH <0.01 Recommendations: Continue 1013 and plan for transfer to inpatient facility. She was informed of the importance of outpatient treatment as well. Her nurse was informed of her mental status after the interview. unable to discuss further recommendations dispo: inpatient hospitalization will staff with Dr. Pa.
[2018-10-16 08:00] LABS: Basophils % (Auto) 1.1 % (0.0-1.8); Eosinophils # (Auto) 0.2 K/mm3 (0.0-0.4); Eosinophils % (Auto) 5.5 % (0.0-4.3); Hematocrit 34.6 % (30.3-42.9); Hemoglobin 11.5 gm/dl (10.1-14.3); Lymphocytes # (Auto) 1.4 K/mm3 (1.2-5.4); Lymphocytes % (Auto) 41.2 % (13.4-35.0); Mean Corpuscular HGB Conc 33 % (30-34); Mean Corpuscular Volume 82 fl (79-97); Monocytes # (Auto) 0.3 K/mm3 (0.0-0.8); Platelet Count 741 K/mm3 (140-440); Red Blood Count 4.24 M/mm3 (3.65-5.03)
[2018-10-16] MEDS: PEPCID PO SCH ×2 (10:10→20:59)
[2018-10-16] MEDS: SODIUM CHLORIDE FLUSH SYRINGE 10 ML IV SCH ×2 (10:10→21:00)
[2018-10-16] MEDS: LOVENOX SUB-Q SCH (10:10)
--- NOTE | 2018-10-16 13:43 | Progress Note ---
Assessment and Plan Assessment and plan: Intentional drug overdose with acetaminophen - Status post treatment with acetylcysteine - Patient's LFT and INR levels are normal. Acetaminophen level has trended down - On 1012 Major depression with suicidal attempt - On 101 - Psych following Hypokalemia -Resolved Metabolic acidosis -Improved Leukopenia -We will monitor WBC level Thrombocytosis -Probably reactive, stable DVT prophylaxis on Lovenox Disposition: - patient is medically stable. Discharge is per psych. History Interval history: Patient has no new complaints. No overnight issues reported. Hospitalist Physical - Constitutional Vitals: Temp Pulse Resp BP Pulse Ox 98.8 F 98 H 18 110/60 96 10/16/18 12:49 10/16/18 12:49 10/16/18 12:49 10/16/18 12:49 10/16/18 12:49 General appearance: Present: no acute distress, well-nourished - EENT Eyes: Present: PERRL, EOM intact ENT: hearing intact, clear oral mucosa - Neck Neck: Present: supple - Respiratory Respiratory effort: normal Respiratory: bilateral: CTA - Cardiovascular Rhythm: regular Heart Sounds: Present: S1 & S2 - Extremities Extremities: No edema - Abdominal General gastrointestinal: soft, non-tender, non-distended, normal bowel sounds - Integumentary Integumentary: Present: clear, warm, dry - Neurologic Neurologic: CNII-XII intact Results - Labs CBC & Chem 7: 10/16/18 06:45 10/14/18 06:20 Labs: Laboratory Last Values WBC 3.4 K/mm3 (4.5-11.0) L 10/16/18 06:45 RBC 4.24 M/mm3 (3.65-5.03) 10/16/18 06:45 Hgb 11.5 gm/dl (10.1-14.3) 10/16/18 06:45 Hct 34.6 % (30.3-42.9) 10/16/18 06:45 MCV 82 fl (79-97) 10/16/18 06:45 MCH 27 pg (28-32) L 10/16/18 06:45 MCHC 33 % (30-34) 10/16/18 06:45 RDW 19.0 % (13.2-15.2) H 10/16/18 06:45 Plt Count 741 K/mm3 (140-440) H 10/16/18 06:45 Lymph % (Auto) 41.2 % (13.4-35.0) H 10/16/18 06:45 [place] % (Auto) 10.0 % (0.0-7.3) H 10/16/18 06:45 Eos % (Auto) 5.5 % (0.0-4.3) H 10/16/18 06:45 Baso % (Auto) 1.1 % (0.0-1.8) 10/16/18 06:45 Lymph # 1.4 K/mm3 (1.2-5.4) 10/16/18 06:45 [place] # 0.3 K/mm3 (0.0-0.8) 10/16/18 06:45 Eos # 0.2 K/mm3 (0.0-0.4) 10/16/18 06:45 Baso # 0.0 K/mm3 (0.0-0.1) 10/16/18 06:45 Seg Neutrophils % 42.2 % (40.0-70.0) 10/16/18 06:45 Seg Neutrophils # 1.4 K/mm3 (1.8-7.7) L 10/16/18 06:45 PT 13.8 Sec. (12.2-14.9) 10/14/18 06:20 INR 1.00 (0.87-1.13) 10/14/18 06:20 APTT 20.0 Sec. (24.2-36.6) L 10/12/18 10:38 Sodium 137 mmol/L (137-145) 10/14/18 06:20 Potassium 3.6 mmol/L (3.6-5.0) 10/14/18 06:20 Chloride 103.6 mmol/L (98-107) 10/14/18 06:20 Carbon Dioxide 21 mmol/L (22-30) L 10/14/18 06:20 Anion Gap 16 mmol/L 10/14/18 06:20 BUN 5 mg/dL (7-17) L 10/14/18 06:20 Creatinine 0.7 mg/dL (0.7-1.2) 10/14/18 06:20 Estimated GFR > 60 ml/min 10/14/18 06:20 BUN/Creatinine Ratio 7 % 04/12/19 06:20 Glucose 79 mg/dL (65-100) 10/14/18 06:20 POC Glucose 156 (70-105) H 10/12/18 10:19 Hemoglobin A1c 5.4 % (4-6) 10/12/18 20:36 Calcium 9.1 mg/dL (8.4-10.2) 10/14/18 06:20 Total Bilirubin 0.30 mg/dL (0.1-1.2) 10/14/18 06:20 Direct Bilirubin < 0.2 mg/dL (0-0.2) 10/12/18 10:38 Indirect Bilirubin 0.3 mg/dL 10/12/18 10:38 AST 18 units/L (5-40) 10/14/18 06:20 ALT 14 units/L (7-56) 10/14/18 06:20 Alkaline Phosphatase 74 units/L (35-129) 10/14/18 06:20 Total Protein 7.3 g/dL (6.3-8.2) 10/14/18 06:20 Albumin 4.2 g/dL (3.9-5) 10/14/18 06:20 Albumin/Globulin Ratio 1.4 % 10/14/18 06:20 HCG, Qual Negative (Negative) 10/12/18 10:38 Urine Color Straw (Yellow) 10/12/18 14:26 Urine Turbidity Clear (Clear) 10/12/18 14:26 Urine pH 6.0 (5.0-7.0) 10/12/18 14:26 Ur Specific [place] 1.018 (1.003-1.030) 10/12/18 14:26 Urine Protein <15 mg/dl mg/dL (Negative) 10/12/18 14:26 Urine Glucose (UA) Neg mg/dL (Negative) 10/12/18 14:26 Urine Ketones Tr mg/dL (Negative) 10/12/18 14:26 Urine Blood Neg (Negative) 10/12/18 14:26 Urine Nitrite Neg (Negative) 10/12/18 14:26 Urine Bilirubin Neg (Negative) 10/12/18 14:26 Urine Urobilinogen < 2.0 mg/dL (<2.0) 10/12/18 14:26 Ur Leukocyte Esterase Neg (Negative) 10/12/18 14:26 Urine WBC (Auto) 3.0 /HPF (0.0-6.0) 10/12/18 14:26 Urine RBC (Auto) 1.0 /HPF (0.0-6.0) 10/12/18 14:26 Salicylates < 0.3 mg/dL (2.8-20.0) L 10/12/18 10:38 Urine Opiates Screen Presumptive negative 10/12/18 14:26 Urine Methadone Screen Presumptive negative 10/12/18 14:26 Acetaminophen < 5.0 ug/mL (10.0-30.0) L 10/14/18 09:50 Ur Barbiturates Screen Presumptive negative 10/12/18 14:26 Ur Phencyclidine Scrn Presumptive negative 10/12/18 14:26 Ur Amphetamines Screen Presumptive positive 10/12/18 14:26 U Benzodiazepines Scrn Presumptive negative 10/12/18 14:26 Urine Cocaine Screen Presumptive negative 10/12/18 14:26 U Marijuana (THC) Screen Presumptive negative 10/12/18 14:26 Drugs of Abuse Note Disclamer 10/12/18 14:26 Plasma/Serum Alcohol < 0.01 % (0-0.07) 10/12/18 11:52 Active Medications - Current Medications Current Medications: Generic Name Dose Route Start Last Admin Trade Name Freq PRN Reason Stop Dose Admin Enoxaparin Sodium 40 mg 10/12/18 21:00 10/16/18 10:10 Lovenox SUB-Q 40 mg QDAY ALBERTO Administration Famotidine 20 mg 10/16/18 10:00 10/16/18 10:10 Pepcid PO 20 mg BID ALBERTO Administration Sodium Chloride 1,000 mls @ 125 mls/hr 10/12/18 21:00 Nacl 0.9% 1000 Ml IV DIRECT ALBERTO Ondansetron HCl 4 mg 10/12/18 20:21 Zofran IV Q8H PRN Nausea And Vomiting Sodium Chloride 10 ml 10/12/18 22:00 10/16/18 10:10 Sodium Chloride Flush Syringe 10 Ml IV 10 ml BID ALBERTO Administration Sodium Chloride 10 ml 10/12/18 20:21 Sodium Chloride Flush Syringe 10 Ml IV PRN PRN LINE FLUSH
--- NOTE | 2018-10-16 17:54 | Progress Note ---
Subjective - Reason for Consult Consult date: 10/16/18 Reason for consult: Psychiatric Follow-up Evaluation - Chief Complaint Chief complaint: "Fantastic" Patient is a 27-year-old -[place] female with a past psychiatric history of major depressive disorder. Patient attempted suicide. She says she took 500 mg of 40 pills of Tylenol and after that she didn't know what happened and she woke up in the hospital. Today the patient is anxious but cooperative during the assessment. She states , " I need lexapro and remeron and I'm a hell of a different person." In the past at [facility] (outpatient) patient reports that she was prescribed Lexapro and Remeron and it improved her symptoms "tremendously." Patient has a 6 month old son she would like to care for upon discharge. She rates depression 2/10, with 10 being the worse. She reports ap propriate sleep and appetite. She denies SI/HI's, A/VH's, and delusions. Per sitter patient is having crying spells. She denies any manic episode. Mental Status Exam - Vital signs Last Vital Signs Temp 98.7 F 10/16/18 15:55 Pulse 92 H 10/16/18 15:55 Resp 18 10/16/18 15:55 BP 109/65 10/16/18 15:55 Pulse Ox 96 10/16/18 15:55 - Exam Narrative exam: Orientation: time, place, person Affect: depressed, anxious Mood: euphoric (initially); " I'm good" Thought content: other (denies suicidal or homicidal ideation. suicide attempt via overdose) Thought Process: Intact Perceptions: none Speech: normal rate and pattern Concentration: focused Motor activity: normal Level of consciousness: alert Memory: Intact Sleep Symptoms: None Interaction: cooperative Assessment and Plan Impression: Intentional overdose. Suicide attempt via overdose on forty tabs of 500mg tylenol requiring medical intervention. Today the patient is cooperative but anxious during the assessment. Patient denies SI/HI's, A/VH's, and delusions. UDS neg. ETOH <0.01. DDx: MDD r/o Bipolar Disorder Recommendations: 1. Continue 1013. 2. Start Lexapro 5mg po QAM depressed/anxious. Discussed possible increase suicidality/medication induced michelle in reference to Lexapro. Patient verbalizes full understanding. 3. Will attempt to gain collateral to determine proper disposition. Disposition: Will refer to inpatient psychiatric services. Will staff with Dr. Pa.
[2018-10-17 06:48] LABS: Hematocrit 34.5 % (30.3-42.9); Hemoglobin 11.3 gm/dl (10.1-14.3); Mean Corpuscular HGB Conc 33 % (30-34); Mean Corpuscular Volume 82 fl (79-97); Platelet Count 746 K/mm3 (140-440); Red Blood Count 4.23 M/mm3 (3.65-5.03); Red Cell Distribution Width 19.1 % (13.2-15.2)
[2018-10-17 07:03] LABS: BUN/Creatinine Ratio 15; Blood Urea Nitrogen 9 mg/dL (7-17); Calcium 9.3 mg/dL (8.4-10.2); Hemolysis Index 5
[2018-10-17] MEDS: LOVENOX SUB-Q SCH (10:04)
[2018-10-17] MEDS: PEPCID PO SCH ×2 (10:05→21:09)
[2018-10-17] MEDS: SODIUM CHLORIDE FLUSH SYRINGE 10 ML IV SCH ×2 (10:05→21:09)
--- NOTE | 2018-10-17 11:57 | Progress Note ---
Subjective - Reason for Consult Consult date: 10/17/18 Reason for consult: Psychiatry Follow-up - Chief Complaint Chief complaint: I made a terrible mistake" 27-year-old -[place] female with a past psychiatric history of major depressive disorder. Patient attempted suicide. Today the patient is calm and cooperative during the assessment. She stated that she felt "very depressed" after having her son 6 months ago. She stated that she dealt with depression "a little" prior to becoming . She stated her unsafe act has opened her eye up to "reality." She stated that she want to be a good mother and have no reason to want to kill herself now. She denies SI/HI's and AVH's. She denies any side effects of her medication. Mental Status Exam - Vital signs Last Vital Signs Temp 98.5 F 10/17/18 07:42 Pulse 78 10/17/18 07:42 Resp 18 10/17/18 07:42 BP 120/73 10/17/18 07:42 Pulse Ox 99 10/17/18 05:00 - Exam Narrative exam: MSE: Appearance: calm, cooperative Behavior: regular eye contact Speech: regular rate and tone Mood: "okay" Affect: congruent to mood Thought Process: linear Thought Content: denies SI/HI's and AVH's Motor Activity: sitting up in bed Cognition: A/O x 3 Insight: fair Judgment: fair Assessment and Plan Impression: MDD. Today the patient is calm and cooperative during the assessment. The patient is no threat to others. DDx: Depression Recommendation/Plan: Continue 1013 and Lexapro 5 mg PO daily for depression. Discussed possible suicidality/medication induced michelle with the patient reference Lexapro. Dispo: The patient was referred to inpatient psy services. Will staff with Dr. Reji Pa
[2018-10-17] MEDS ORDERED: LEXAPRO PO SCH ×2 (13:00→18:09)
--- NOTE | 2018-10-17 13:06 | Progress Note ---
Assessment and Plan - Patient Problems (1) Suicidal overdose Current Visit: Yes Status: Acute Plan to address problem: She would drug overdose Tylenol remains 1013. Still has major depression Lexapro added benzodiazepine withdrawn. Patient stable medical Y is to be transferred to inpatient or outpatient psych History Interval history: Patient feels good now. Playing with her 6 month baby on her laughing playing. He still feels anxious at times. Hospitalist Physical - Constitutional Vitals: Temp Pulse Resp BP Pulse Ox 98.5 F 95 H 18 119/74 98 10/17/18 13:00 10/17/18 13:00 10/17/18 13:00 10/17/18 13:00 10/17/18 13:00 General appearance: Present: no acute distress, well-nourished - EENT Eyes: Present: PERRL, EOM intact ENT: hearing intact, clear oral mucosa, dentition normal - Neck Neck: Present: supple, normal ROM - Respiratory Respiratory effort: normal Respiratory: bilateral: CTA - Cardiovascular Rhythm: irregularly irregular - Extremities Extremities: no ischemia, pulses intact, pulses symmetrical, No edema, normal temperature, normal color Peripheral Pulses: within normal limits - Abdominal General gastrointestinal: soft, non-tender, non-distended, normal bowel sounds - Psychiatric Psychiatric: intact judgment & insight - Neurologic Neurologic: CNII-XII intact, no focal deficits, moves all extremities Results - Labs CBC & Chem 7: 10/17/18 06:20 10/17/18 06:20 Labs: Laboratory Last Values WBC 3.5 K/mm3 (4.5-11.0) L 10/17/18 06:20 RBC 4.23 M/mm3 (3.65-5.03) 10/17/18 06:20 Hgb 11.3 gm/dl (10.1-14.3) 10/17/18 06:20 Hct 34.5 % (30.3-42.9) 10/17/18 06:20 MCV 82 fl (79-97) 10/17/18 06:20 MCH 27 pg (28-32) L 10/17/18 06:20 MCHC 33 % (30-34) 10/17/18 06:20 RDW 19.1 % (13.2-15.2) H 10/17/18 06:20 Plt Count 746 K/mm3 (140-440) H 10/17/18 06:20 Lymph % (Auto) 41.2 % (13.4-35.0) H 10/16/18 06:45 [place] % (Auto) 10.0 % (0.0-7.3) H 10/16/18 06:45 Eos % (Auto) 5.5 % (0.0-4.3) H 10/16/18 06:45 Baso % (Auto) 1.1 % (0.0-1.8) 10/16/18 06:45 Lymph # 1.4 K/mm3 (1.2-5.4) 10/16/18 06:45 [place] # 0.3 K/mm3 (0.0-0.8) 10/16/18 06:45 Eos # 0.2 K/mm3 (0.0-0.4) 10/16/18 06:45 Baso # 0.0 K/mm3 (0.0-0.1) 10/16/18 06:45 Seg Neutrophils % 42.2 % (40.0-70.0) 10/16/18 06:45 Seg Neutrophils # 1.4 K/mm3 (1.8-7.7) L 10/16/18 06:45 PT 13.8 Sec. (12.2-14.9) 10/14/18 06:20 INR 1.00 (0.87-1.13) 10/14/18 06:20 APTT 20.0 Sec. (24.2-36.6) L 10/12/18 10:38 Sodium 138 mmol/L (137-145) 10/17/18 06:20 Potassium 4.3 mmol/L (3.6-5.0) 10/17/18 06:20 Chloride 101.4 mmol/L (98-107) 10/17/18 06:20 Carbon Dioxide 27 mmol/L (22-30) 10/17/18 06:20 Anion Gap 14 mmol/L 10/17/18 06:20 BUN 9 mg/dL (7-17) 10/17/18 06:20 Creatinine 0.6 mg/dL (0.7-1.2) L 10/17/18 06:20 Estimated GFR > 60 ml/min 10/17/18 06:20 BUN/Creatinine Ratio 15 % 10/17/18 06:20 Glucose 88 mg/dL (65-100) 10/17/18 06:20 POC Glucose 156 (70-105) H 10/12/18 10:19 Hemoglobin A1c 5.4 % (4-6) 10/12/18 20:36 Calcium 9.3 mg/dL (8.4-10.2) 10/17/18 06:20 Total Bilirubin 0.30 mg/dL (0.1-1.2) 10/14/18 06:20 Direct Bilirubin < 0.2 mg/dL (0-0.2) 10/12/18 10:38 Indirect Bilirubin 0.3 mg/dL 10/12/18 10:38 AST 18 units/L (5-40) 10/14/18 06:20 ALT 14 units/L (7-56) 10/14/18 06:20 Alkaline Phosphatase 74 units/L (35-129) 10/14/18 06:20 Total Protein 7.3 g/dL (6.3-8.2) 10/14/18 06:20 Albumin 4.2 g/dL (3.9-5) 10/14/18 06:20 Albumin/Globulin Ratio 1.4 % 10/14/18 06:20 HCG, Qual Negative (Negative) 10/12/18 10:38 Urine Color Straw (Yellow) 10/12/18 14:26 Urine Turbidity Clear (Clear) 10/12/18 14:26 Urine pH 6.0 (5.0-7.0) 10/12/18 14:26 Ur Specific Kimberly 1.018 (1.003-1.030) 10/12/18 14:26 Urine Protein <15 mg/dl mg/dL (Negative) 10/12/18 14:26 Urine Glucose (UA) Neg mg/dL (Negative) 10/12/18 14:26 Urine Ketones Tr mg/dL (Negative) 10/12/18 14:26 Urine Blood Neg (Negative) 10/12/18 14:26 Urine Nitrite Neg (Negative) 10/12/18 14:26 Urine Bilirubin Neg (Negative) 10/12/18 14:26 Urine Urobilinogen < 2.0 mg/dL (<2.0) 10/12/18 14:26 Ur Leukocyte Esterase Neg (Negative) 10/12/18 14:26 Urine WBC (Auto) 3.0 /HPF (0.0-6.0) 10/12/18 14:26 Urine RBC (Auto) 1.0 /HPF (0.0-6.0) 10/12/18 14:26 Salicylates < 0.3 mg/dL (2.8-20.0) L 10/12/18 10:38 Urine Opiates Screen Presumptive negative 10/12/18 14:26 Urine Methadone Screen Presumptive negative 10/12/18 14:26 Acetaminophen < 5.0 ug/mL (10.0-30.0) L 10/14/18 09:50 Ur Barbiturates Screen Presumptive negative 10/12/18 14:26 Ur Phencyclidine Scrn Presumptive negative 10/12/18 14:26 Ur Amphetamines Screen Presumptive positive 10/12/18 14:26 U Benzodiazepines Scrn Presumptive negative 10/12/18 14:26 Urine Cocaine Screen Presumptive negative 10/12/18 14:26 U Marijuana (THC) Screen Presumptive negative 10/12/18 14:26 Drugs of Abuse Note Disclamer 10/12/18 14:26 Plasma/Serum Alcohol < 0.01 % (0-0.07) 10/12/18 11:52 Active Medications - Current Medications Current Medications: Generic Name Dose Route Start Last Admin Trade Name Freq PRN Reason Stop Dose Admin Enoxaparin Sodium 40 mg 10/12/18 21:00 10/17/18 10:04 Lovenox SUB-Q 40 mg QDAY ALBERTO Administration Escitalopram Oxalate 5 mg 10/17/18 13:00 10/17/18 13:02 Lexapro PO 5 mg QDAY ALBERTO Administration Famotidine 20 mg 10/16/18 10:00 10/17/18 10:05 Pepcid PO 20 mg BID ALBERTO Administration Ondansetron HCl 4 mg 10/12/18 20:21 Zofran IV Q8H PRN Nausea And Vomiting Sodium Chloride 10 ml 10/12/18 22:00 10/17/18 10:05 Sodium Chloride Flush Syringe 10 Ml IV 10 ml BID ALBERTO Administration Sodium Chloride 10 ml 10/12/18 20:21 Sodium Chloride Flush Syringe 10 Ml IV PRN PRN LINE FLUSH
[2018-10-18 17:53] VITALS: BP 119/74
== END 2018-10-17 22:50 | DRG 918 ==
LOC: ED 10:05 → EEVIPCON 10:05 → CC1 20:21 → 4A 10-13 10:13
PROVIDERS: ADMIT Internal Medicine; ATTEND Internal Medicine
DX: T39.1X2A Poisoning by 4-Aminophenol derivatives, intentional self-harm, initial encounter (principal); F32.9 Major depressive disorder, single episode, unspecified; E87.6 Hypokalemia; E87.2 Acidosis; D72.819 Decreased white blood cell count, unspecified; D47.3 Essential (hemorrhagic) thrombocythemia; I10 Essential (primary) hypertension; Y92.89 Other specified places as the place of occurrence of the external cause; Z79.899 Other long term (current) drug therapy; R73.9 Hyperglycemia, unspecified; Z82.49 Family history of ischemic heart disease and other diseases of the circulatory system
CPT/HCPCS: 36415; 70450; 80048; 80053; 80076; 80307; 80320; 81001; 82962; 83036; 84703; 85025; 85027; 85610; 85730; 87116; 93005; 93010; G0378; G0480; J0132; J1650; J2405; J7030; J7060; J7070